=== PATIENT | female | born 1970 | race Asian ===

== ENCOUNTER 2024-05-10 10:25 | Emergency (ER) | payer OTHER, SELFPAY ==
[2024-05-10 10:41] VITALS: BP 114/69
[2024-05-10 12:35] VITALS: BMI 19.2
[2024-05-10 12:54] LABS: % Basophils 0.2 % (0-2); % Eosinophils 0.6 % (0-6); % Immature Granulocytes 0.2 % (0-0.5); % Lymphocytes 21.5 % (20.5-51.1); % Monocytes 4.6 % (1.7-9.3); % Neutrophils 72.9 % (42.2-75.2); Absolute Lymphocytes 1.1 10^3/uL (1.2-3.4); Absolute Monocytes 0.2 10^3/uL (0.1-0.6); Absolute Neutrophils 3.8 10^3/uL (1.4-6.5); Hematocrit 33.9 % (37.0-47.0); Hemoglobin 9.5 g/dL (12.0-16.0); Mean Corpuscular Hgb 20.3 pg (27.0-31.0); Mean Corpuscular Volume 72.3 fL (81.0-99.0); Nucleated Red Blood Cells % 0 %; Platelet Count 108 10^3/uL (130-400); Red Blood Cell Count 4.69 10^6/uL (4.20-5.40); Red Cell Dist. Width 21.8 % (11.5-14.5); White Blood Cell Count 5.2 10^3/uL (4.8-10.8)
[2024-05-10] MEDS: NSS 1000 IV (13:02)
[2024-05-10 13:06] VITALS: BP 100/71; BP 91/67; BP 99/68; PULSE 66; PULSE 70; PULSE 87
[2024-05-10 13:12] LABS: ALT (SGPT) 14 U/L (0-35); AST (SGOT) 37 U/L (14-36); Albumin 5.5 g/dl (3.5-5.0); Alkaline Phosphatase 74 U/L (38-126); Blood Urea Nitrogen 15 mg/dl (7-17); Carbon Dioxide 26 mmol/L (22-30); Chloride 102 mmol/L (98-107); Estimated Creatinine Clearance 81 ml/min; Glucose 89 mg/dl (70-99); Potassium 4.3 mmol/L (3.5-5.1); Sodium 140 mmol/L (135-145); Total Bilirubin 5.9 mg/dl (0.2-1.3); Total Protein 8.8 g/dl (6.3-8.2); eGFR > 60.00
[2024-05-10 14:00] VITALS: BP 118/74
[2024-05-10 14:19] LABS: Reticulocyte Count 3.3 % (0.4-2.8)
[2024-05-10 15:12] LABS: LDH 250 U/L (120-246)
--- NOTE | 2024-05-10 15:23 | ED.GENMED ---
History of Present Illness
General
Chief Complaint: Dizziness
Source: patient and family
Time Seen by Provider: 05/10/24 12:30
History of Present Illness
History of Present Illness:
53-year-old female who woke up yesterday with room spinning dizziness. She has had room spinning dizziness and nausea since yesterday. The patient states today it is better and her nausea is improved. Her room spinning dizziness is also improved.
She states it was a little worse when she laid back but just a little bit. Today she is feeling better but her symptoms are persistent went to urgent care who advised her to come to the emergency department. Patient today again feels better and
denies any associated difficulty walking or motor weakness. No numbness or tingling. No vision changes. No headache. No tinnitus. No hearing loss.
Past History
Past History
ED Past Medical History: None
ED Past Surgical History:
Phy Exam
Physical Exam
Physical Exam:
CONSTITUTIONAL Patient alert and oriented to person, place and time. Well-appearing. Vital signs reviewed.
HEAD atraumatic, normocephalic.
EYES eyelids normal to inspection, Pupils equally round and reactive to light, Extraocular muscles intact, Conjunctiva normal, question mild scleral icterus.
NECK normal range of motion, Trachea midline, no jugular venous distention.
RESPIRATORY CHEST No respiratory distress noted, Chest expansion equal, Bilateral breath sounds clear.
CARDIOVASCULAR regular rate and rhythm, Heart sounds normal.
ABDOMEN abdomen nontender, Bowel sounds normal. No distention.
BACK normal inspection, no obvious deformities
UPPER EXTREMITY range of motion normal, Motor strength normal, no cyanosis, no edema.
LOWER EXTREMITY range of motion normal, Motor strength normal, no cyanosis, no edema.
NEURO Speech normal, No focal motor deficits, Pindall coma scale 15, Memory normal, Cranial Nerves intact to screening exam. Normal gait. Normal [id number]. No pronator drift. No nystagmus.
SKIN skin warm, dry, and normal in color.
PSYCHIATRIC patient oriented to person place and time, Normal affect.
Course
Orders/Labs/Results
Orders:
Orders
05/10/24 12:38
CMP [Comprehensive Metabolic Panel] Urgent
Complete Blood Count/With Diff Urgent
Direct Bilirubin Urgent
Haptoglobin [S] Urgent
Comment: ADD
LDH Urgent
Comment: ADD
Reticulocyte Count Urgent
Comment: ADD
05/10/24 12:50
Orthostatic VS- Treatment ONCE
0.9% Sodium Chloride 1000 ml [Nss] 1,000 ml IV BOLUS
05/10/24 13:16
Add On- LAB Urgent
Tests Added?: direct bilirubin
05/10/24 13:21
Add On- LAB Urgent
Tests Added?: LDH, haptoglobin
05/10/24 13:22
Add On- LAB Urgent
Tests Added?: retic count
Abnormal Lab Results
05/10/24
12:38
Hgb 9.5 L g/dL
(12.0-16.0)
Hct 33.9 L %
(37.0-47.0)
MCV 72.3 L fL
(81.0-99.0)
MCH 20.3 L pg
(27.0-31.0)
MCHC 28.0 L g/dL
(33.0-37.0)
RDW 21.8 H %
(11.5-14.5)
Plt Count 108 L 10^3/uL
(130-400)
Absolute Lymphs (auto) 1.1 L 10^3/uL
(1.2-3.4)
Retic Count 3.3 H %
(0.4-2.8)
Creatinine 0.5 L mg/dL
(0.6-1.0)
Total Bilirubin 5.9 H mg/dl
(0.2-1.3)
Direct Bilirubin 1.0 H mg/dl
(0.0-0.4)
AST 37 H U/L
(14-36)
Lactate Dehydrogenase 250 H U/L
(120-246)
Total Protein 8.8 H g/dl
(6.3-8.2)
Albumin 5.5 H g/dl
(3.5-5.0)
05/10/24 12:38
05/10/24 12:38
Vital Signs
Initial and Last Documented VS:
Initial Vital Signs
Temp Pulse Resp BP Pulse Ox
98.1 F 80 18 114/69 97
05/10/24 10:41 05/10/24 10:41 05/10/24 10:41 05/10/24 10:41 05/10/24 10:41
Last Documented Vital Signs
Temp Pulse Resp BP Pulse Ox
98.1 F 77 16 118/74 100
05/10/24 10:41 05/10/24 14:00 05/10/24 14:00 05/10/24 14:00 05/10/24 14:00
MDM/Problems Addressed
MDM/Problems Addressed:
Anemia, thrombocytopenia, elevated bilirubin, vertigo
*Pulse Oximetry
Patient hypoxic: no
*Critical Care Note
Total Time (30-74mins, 75-104mins- exclusive of procedures): Not Applicable
Data Reviewed
Source: patient and family
Further Testing Considered But Not Given:
Consider CT of the head but nonfocal exam
Patient Management
Discussion with other providers: [facility] (Hematology)
Escalation/DeEscalation of care consider admission/obs:
53-year-old female presents with likely peripheral vertigo. Cerebellar exam normal. Gait normal. Found to have elevated bilirubin. Hemoglobin 9.5 with no baseline noted. Denies black or bloody stools. LDH, reticulocyte labs reviewed.
Haptoglobin pending. Case discussed with hematology. Will refer for outpatient follow-up. Otherwise appears well. Encouraged oral fluids and return for worsening symptoms. Also will provide Zofran and Antivert as needed
ED Attending Note
-
Portions of this chart may have been created with voice recognition software.� Occasional wrong word or��sound alike� substitutions may have occurred due to the inherent limitations of voice recognition software.
Discharge Plan
Departure
Patient Disposition: Home (Routine Discharge)
Date of Disposition: 05/10/24
Time of Disposition: 15:35
Patient with high blood pressure during this ER visit?: No
Discharge Problem:
Anemia, Vertigo, Thrombocytopenia
Instructions: Vertigo (a type of dizziness)
Prescriptions:
New
ondansetron 4 mg tablet,disintegrating
4 mg PO Q8H 3 Days Qty: 9 0RF
meclizine 25 mg tablet
25 mg PO TID PRN (Reason: dizziness) Qty: 14 0RF
Referrals:
Denise Cueva, DO [Active] -
NONE,* [Family Provider] -
Activity Restrictions/Additional Instructions:
Please see hematology in the next 3 to 5 days for follow-up and reevaluation. Return immediately for worsening dizziness, lightheadedness, passing out episode, black or bloody stools, shortness of breath, chest pain or any other concerns. Please
drink plenty fluids.
Interventions
Interventions:
*Risk Screen - Suicide Last Done: 05/10/24 12:38
*General Assessment Last Done: 05/10/24 12:38
*Neglect/Abuse Screening Last Done: 05/10/24 12:38
ED- Fall Risk Assessment Last Done: 05/10/24 12:38
*ED COVID-19 Vaccine History Last Done: 05/10/24 12:38
ED- Neurological Assessment Last Done: 05/10/24 12:38
Discharge Date and Time
Print Language: MONGOLIAN
[2024-05-10 16:00] VITALS: BP 110/70
[2024-05-12 19:29] LABS: Haptoglobin <10 mg/dL (30-200)
== END 2024-05-10 16:01 | disposition home or self-care (01) ==
LOC: EMR 10:25
PROVIDERS: EMERGENCY PHYSICIAN Emergency Medicine
DX: D64.9 Anemia, unspecified (principal); R42 Dizziness and giddiness; D69.6 Thrombocytopenia, unspecified; R11.0 Nausea
CPT/HCPCS: 99282; 96360; 80053; 82248; 83010; 83615; 85025; 85045

== ENCOUNTER → 2024-09-27 10:01 | Outpatient (REF) | payer OTHER, SELFPAY | LOC: RAD 10:01 | PROVIDERS: ATTENDING PHYSICIAN Internal Medicine | DX: D56.9 Thalassemia, unspecified (principal) | CPT/HCPCS: 76700 ==

== ENCOUNTER → 2024-11-18 10:13 | Outpatient (REF) | payer OTHER, SELFPAY | LOC: MRI 3T 10:13 | PROVIDERS: ATTENDING PHYSICIAN Internal Medicine Hematology & Oncology; FAMILY PHYSICIAN Internal Medicine | DX: D64.9 Anemia, unspecified (principal); E83.10 Disorder of iron metabolism, unspecified | CPT/HCPCS: 74183; A9575 ==

== ENCOUNTER 2025-07-11 06:23 | Day surgery (SDC) | payer OTHER, SELFPAY | END 2025-07-11 08:31 | disposition home or self-care (01) | LOC: GI 06:23 | PROVIDERS: ATTENDING PHYSICIAN Internal Medicine Gastroenterology | DX: Z12.11 Encounter for screening for malignant neoplasm of colon (principal); D12.2 Benign neoplasm of ascending colon; K57.30 Diverticulosis of large intestine without perforation or abscess without bleeding; K62.1 Rectal polyp; K64.8 Other hemorrhoids | CPT/HCPCS: 45380; 88305 ==